=== PATIENT | female | born 1975 | race Caucasian/White ===

== ENCOUNTER 2023-05-28 15:06 | Outpatient (CLI) | payer OTHER, SELFPAY | END 2023-05-28 15:07 | disposition home or self-care (01) | LOC: FRMREF 15:08 | PROVIDERS: PCP Family Medicine; Visit Provider Physician Assistant Medical | DX: Z00.00 Encounter for general adult medical examination without abnormal findings (principal); N92.0 Excessive and frequent menstruation with regular cycle | CPT/HCPCS: 84443 ==

== ENCOUNTER 2023-05-30 14:38 | Outpatient (CLI) | payer OTHER, SELFPAY ==
--- NOTE | 2023-05-30 15:00 | CRLHL7_ITS ---
For Patients: As a result of the Century Cures Act, medical imaging exams and procedure reports are released immediately into your electronic medical record. You may view this report before your referring provider. If you have questions, please contact your health care provider. CLINICAL HISTORY: Frequent irregular bleeding TECHNIQUE: Real time, catalan scale images were acquired of the pelvis using a transabdominal and transvaginal approach. Color Doppler analysis was performed of the ovaries. FINDINGS: The uterus measures 8.4 x 4.6 x 5.3 centimeters. The endometrium measures 2.1 centimeters which is heterogeneous in appearance there is increased vascularity. Suggestion of a heterogeneous rounded mass in the endometrial cavity near the fundus measuring approximately 1.9 x 1.4 x 2.3 centimeters. Normal right ovary measuring 2.2 x 1.6 x 1.5 centimeters. Left ovary measures 4.2 x 1.7 x 3.3 centimeters with a 3.5 centimeter simple cyst. Blood flow on color Doppler. IMPRESSION: Heterogeneous endometrium with increased vascularity. There is suggestion of a rounded mass near the endometrial cavity near the fundus measuring approximately 2.3 x 1.4 x 1.9 centimeters. This may represent a polyp or polyps. Recommend cystoscopy. Dictated by Sara Washington MD @ 06/01/2023 6:53:58 AM (Electronically Signed)
== END 2023-05-30 14:39 | disposition home or self-care (01) ==
PROVIDERS: PCP Family Medicine; Visit Provider Physician Assistant Medical
DX: N92.0 Excessive and frequent menstruation with regular cycle (principal)
CPT/HCPCS: 76830; 76856

== ENCOUNTER 2023-07-09 07:29 | Day surgery (SDC) | payer OTHER, SELFPAY ==
[2023-07-09] MEDS: LACTATED RINGERS 1000 ML 1,000 ML 100 ML IV (07:35)
[2023-07-09 07:46] VITALS: BMI 28.3
[2023-07-09 07:56] VITALS: BP 114/78; PULSE 78; RESP 16; TEMP 36.3; O2SAT 100
[2023-07-09 07:59] LABS: Ur HCG Qualitative* Negative (Negative)
[2023-07-09] MEDS: SODIUM CHLORIDE 0.9 % (FLUSH) 10 ML SYRINGE IVF (08:08)
[2023-07-09] MEDS: LIDOCAINE 1% MDV 20 ML INJECTION (09:41)
[2023-07-09 09:57] VITALS: BP 110/70; PULSE 81; RESP 16; TEMP 36.1; O2SAT 97
[2023-07-09 10:00] VITALS: BP 115/77; PULSE 81; RESP 16; O2SAT 97
--- NOTE | 2023-07-09 10:01 | W.PM.GYNPROC ---
Procedure Note Date of procedure: 07/09/23 Pre-op diagnosis: Menorrhagia with irregular cycle, possible endometrial polyp on ultrasound Post-op diagnosis: other ( Menorrhagia with irregular cycle, submucosal fibroid) Procedure: Hysteroscopy Submucosal myomectomy D&C Huong endometrial ablation Anesthesia: MAC and local ( paracervical block) Complications: None Surgeon: Yasmine Geiger MD Estimated blood loss (mL): 5 Pathology: specimen obtained, sent to pathology ( 1. Submucosal fibroid, 2. Endometrial curettings) Condition: stable Disposition: same day Findings: 1.5 cm pedunculated mass arising the posterior endometrium to the left of midline, consistency of a fibroid, in a background of normal-appearing endometrium. Procedure Description: After obtaining informed consent, the patient was taken to the operating room where she received monitored anesthesia care. She was prepared and draped in the normal sterile fashion, in the dorsal lithotomy position. An open-sided bivalve speculum was introduced into the vagina and the cervix visualized. The anterior lip of the cervix was grasped with a single-tooth tenaculum for traction. A paracervical block was then administered using a total of 20 mL of 1% lidocaine plain. The uterus was gently sounded. Sound length was 10 cm. The cervix length was determined to be 5 cm using Hegar dilators, yielding a uterine cavity length of 5 cm. The cervix was gently dilated to a #6 Hegar dilator. A hysteroscope was then advanced under direct visualization through the cervix into the uterine cavity. Sterile normal saline was used as distending medium. The uterine cavity was carefully inspected with the findings noted above. I attempted to remove the pedunculated soft tissue mass with the TruClear morcellator soft tissue blade, but found the mass to dense, consistent with the uterine fibroid. The hysteroscope was then removed And replaced by a larger hysteroscope that would accommodate the TruClear morcellator dense tissue blade. This was used to remove the submucosal fibroid in its entirety. The hysteroscope was then removed. The endometrial lining was then sharply curetted. The Huong device was then set to a cavity length of 5 cm, inserted through the cervical os into the uterine cavity to the level of the fundus, and deployed. The device was sealed against the cervix. The safety checks were then passed x2 and the 2-minute treatment cycle initiated. Following completion of the treatment cycle, the Huong device was removed. The hysteroscope was advanced again into the uterine cavity and the uterine cavity inspected. A good ablation was noted from the internal os to fundus and to the cornua bilaterally. Pictures were taken for documentation purposes. The hysteroscope was removed. The tenaculum was removed. There was little bleeding from the tenaculum site, which was controlled with direct pressure sponge stick. All instruments were then removed. The patient tolerated the procedure well. Toradol 30 mg IV was administered by the RECYCLING CENTER OPERATOR at the conclusion of the procedure. Sponge, lap, needle, and instrument counts reported as correct x2. A debrief was done which confirmed the procedures performed as well as the 2 pathology specimens to be sent. The patient was taken to the recovery room awake in a stable condition.
--- NOTE | 2023-07-09 10:01 | W.ANESCHARGE ---
Anesthesia Charges Start Date/Time Anesthesia Start Date: 07/09/23 Anesthesia Start Time: 09:04 Stop Date/Time Anesthesia Stop Date: 07/09/23 Anesthesia Stop Time: 10:00
[2023-07-09 10:15] VITALS: BP 114/77; PULSE 77; RESP 16; O2SAT 97
[2023-07-09 10:30] VITALS: BP 120/70; PULSE 77; RESP 16; O2SAT 97
[2023-07-09 10:45] VITALS: BP 122/70; PULSE 80; RESP 16; O2SAT 97
[2023-07-09] MEDS: ACETAMINOPHEN 500 MG TABLET 1000 MG PO (10:57)
== END 2023-07-09 11:14 | disposition home or self-care (01) ==
PROVIDERS: PCP Family Medicine; Visit Provider Obstetrics & Gynecology
PROC: 0UF98ZZ Fragmentation in Uterus, Via Natural or Artificial Opening Endoscopic (ICD-10-PCS; CPT 58563; principal; 2023-07-09 08:45)
DX: N92.1 Excessive and frequent menstruation with irregular cycle (principal); D25.0 Submucous leiomyoma of uterus
CPT/HCPCS: 58563; 58561; 00952; 81025; 88305; A9270; J1100; J1885; J2405; J2704; J3010; J7120

== ENCOUNTER 2023-10-22 12:38 | Outpatient (CLI) | payer OTHER, SELFPAY ==
--- NOTE | 2023-10-22 13:00 | CRLHL7_ITS ---
For Patients: As a result of the Century Cures Act, medical imaging exams and procedure reports are released immediately into your electronic medical record. You may view this report before your referring provider. If you have questions, please contact your health care provider. BILATERAL SCREENING MAMMOGRAM WITH COMPUTER-AIDED DETECTION TECHNIQUE: CC and MLO views were obtained. These mammographic images have been obtained using full-field digital technique. These mammographic images were interpreted with the benefit of computer-aided detection. COMPARISON FILM: 08/13/21, 08/01/17, 07/24/15. FINDINGS: The breasts are almost entirely fatty. IMPRESSION: There is no radiographic evidence for malignancy. ASSESSMENT: BI-RADS Category 1: Negative RECOMMENDATION: Routine screening mammogram in 1 year. A lay language report of this examination will be provided to the patient. Randell Flores M.D. Diagnostic Radiologist [email or web address] SP/Dictated by: Randell Flores MD @ 10/22/2023 1:44:00 PM (Electronically Signed)
== END 2023-10-22 12:39 | disposition home or self-care (01) ==
LOC: MAMMO 12:38
PROVIDERS: PCP Family Medicine; Visit Provider Obstetrics & Gynecology
DX: Z12.31 Encounter for screening mammogram for malignant neoplasm of breast (principal)
CPT/HCPCS: 77067

== ENCOUNTER 2024-10-25 07:57 | Outpatient (CLI) | payer OTHER, SELFPAY ==
--- NOTE | 2024-10-25 08:15 | CRLHL7_ITS ---
For Patients: As a result of the Century Cures Act, medical imaging exams and procedure reports are released immediately into your electronic medical record. You may view this report before your referring provider. If you have questions, please contact your health care provider. BILATERAL SCREENING MAMMOGRAM WITH COMPUTER-AIDED DETECTION AND TOMOSYNTHESIS TECHNIQUE: CC and MLO views were obtained. These mammographic images have been obtained using full-field digital technique. These mammographic images were interpreted with the benefit of computer-aided detection. Breast Tomosynthesis was used in this interpretation. COMPARISON FILM: 10/22/23, 08/16/22, 08/13/21. FINDINGS: The breasts are almost entirely fatty. IMPRESSION: There is no radiographic evidence for malignancy. ASSESSMENT: BI-RADS Category 1: Negative RECOMMENDATION: Routine screening mammogram in 1 year. A lay language report of this examination will be provided to the patient. Randell Flores M.D. Diagnostic Radiologist [email or web address] SP/Dictated by: Randell Flores MD @ 10/25/2024 10:30:00 AM (Electronically Signed)
== END 2024-10-25 07:58 | disposition home or self-care (01) ==
LOC: MAMMO 07:58
PROVIDERS: PCP Family Medicine; Visit Provider Obstetrics & Gynecology
DX: Z12.31 Encounter for screening mammogram for malignant neoplasm of breast (principal)
CPT/HCPCS: 77063; 77067

== ENCOUNTER 2024-10-25 07:58 | Outpatient (CLI) | payer OTHER, SELFPAY | END 2024-10-25 07:59 | disposition home or self-care (01) | LOC: NFLDREF 10-27 01:28 | PROVIDERS: PCP Family Medicine; Referring Provider Family Medicine; Visit Provider Obstetrics & Gynecology | DX: Z13.1 Encounter for screening for diabetes mellitus (principal); Z13.6 Encounter for screening for cardiovascular disorders | CPT/HCPCS: 80061; 82947 ==

== ENCOUNTER 2025-02-10 08:48 | Outpatient (CLI) | payer OTHER, SELFPAY ==
--- NOTE | 2025-02-10 10:59 | P.ANES_ITS ---
Anesthesia Charges Start Date/Time Anesthesia Start Date: 02/10/25 Anesthesia Start Time: 10:30 Stop Date/Time Anesthesia Stop Date: 02/10/25 Anesthesia Stop Time: 10:56 Coding CPT Codes CPT Codes: STEFAN LWR INTST SCR COLSC - 89514 ([id number]) P2 - PATIENT W/MILD SYST DISEASE, QX - MUD BOSS SVC W/ MD MED DIRECTION, QK - TRAY SERVICE WORKER 2-4 CNCRNT ANES PROC
--- NOTE | 2025-02-10 10:59 | W.ANESCHARGE ---
Anesthesia Charges Start Date/Time Anesthesia Start Date: 02/10/25 Anesthesia Start Time: 10:30 Stop Date/Time Anesthesia Stop Date: 02/10/25 Anesthesia Stop Time: 10:56 Coding CPT Codes CPT Codes: STEFAN LWR INTST SCR COLSC - 50053 ([id number]) P2 - PATIENT W/MILD SYST DISEASE, QX - PIECE WORK CHECKER SVC W/ MD MED DIRECTION, QK - WAFER ABRADING MACHINE TENDER 2-4 CNCRNT ANES PROC
--- NOTE | 2025-02-10 11:01 | P.ANES_ITS ---
Anesthesia Charges Start Date/Time Anesthesia Start Date: 02/10/25 Anesthesia Start Time: 10:30 Stop Date/Time Anesthesia Stop Date: 02/10/25 Anesthesia Stop Time: 10:56 Coding CPT Codes CPT Codes: STEFAN LWR INTST SCR COLSC - 10944 ([id number]) QK - PNEUMATIC TUBE FITTER 2-4 CNCRNT STEFAN PROC, QX - EDITOR IN CHIEF NEWSPAPER SVC W/ MD MED DIRECTION, P2 - PATIENT W/MILD SYST DISEASE
--- NOTE | 2025-02-10 11:01 | W.ANESCHARGE ---
Anesthesia Charges Start Date/Time Anesthesia Start Date: 02/10/25 Anesthesia Start Time: 10:30 Stop Date/Time Anesthesia Stop Date: 02/10/25 Anesthesia Stop Time: 10:56 Coding CPT Codes CPT Codes: STEFAN LWR INTST SCR COLSC - [id number] ([id number]) QK - AGENT SPA DESK 2-4 CNCRNT STEFAN PROC, QX - TOXICOLOGY SUPERVISOR SVC W/ MD MED DIRECTION, P2 - PATIENT W/MILD SYST DISEASE
== END 2025-02-10 08:49 | disposition home or self-care (01) ==
LOC: OP CLINIC 08:50
PROVIDERS: PCP Family Medicine; Visit Provider Surgery
DX: Z12.11 Encounter for screening for malignant neoplasm of colon (principal); K64.8 Other hemorrhoids
CPT/HCPCS: 00812; 45378; J2704

== ENCOUNTER 2025-06-15 09:58 | Outpatient (CLI) | payer OTHER, SELFPAY ==
[2025-06-17 07:43] LABS: HPV Source Cervix
[2025-06-20 08:56] LABS: Pap Test Digital Imaging Done
== END 2025-06-15 09:59 | disposition home or self-care (01) ==
PROVIDERS: PCP Family Medicine; Visit Provider Obstetrics & Gynecology
DX: Z12.4 Encounter for screening for malignant neoplasm of cervix (principal); Z11.51 Encounter for screening for human papillomavirus (HPV)
CPT/HCPCS: 87624; 87625; 88141; 88142; 88175